=== PATIENT | female | born 1990 | race Caucasian/White ===

== ENCOUNTER 2019-09-26 14:47 | Inpatient (IN) | payer MEDICAID ==
[~2019-09-26] VITALS: Ht 165.1 cm; Wt 71.4 kg
[2019-09-26] MEDS ORDERED: POLYETHYLENE GLYCOL 17 GM PACKET PO PRN (17:00)
[2019-09-26] MEDS ORDERED: ONDANSETRON ODT 4 MG PO PRN (17:00)
[2019-09-26] MEDS ORDERED: DOCUSATE 100 MG CAPSULE PO PRN (17:00)
[2019-09-26] MEDS ORDERED: BISACODYL 10 MG SUPP PR PRN (17:00)
[2019-09-26] MEDS ORDERED: PLEASE ENTER HEIGHT AND WEIGHT MC SCH (17:30)
[2019-09-26 17:47] VITALS: BP 139/76
[2019-09-26] MEDS ORDERED: QUET (18:10)
[2019-09-26] MEDS ORDERED: [UNRECOGNIZED DRUG - OTHER] (18:10)
[2019-09-26] MEDS ORDERED: PRAZOSIN (18:10)
[2019-09-26] MEDS ORDERED: ABILIFY (18:10)
[2019-09-26 19:07] VITALS: BP 109/68
[2019-09-27 07:33] VITALS: BP 113/67
[2019-09-27 07:53] LABS: MICROSCOPIC AUTO
[2019-09-27 08:32] LABS: CHOL/HDL RATIO 3.8; LDL/HDL RATIO 2.1 (0.5-3.0)
[2019-09-27] MEDS: ACETAMINOPHEN 325 MG TABLET PO PRN (10:03)
[2019-09-27] MEDS: HYDROCORTISONE CRM 1%, 30GM TP PRN ×2 (15:44→20:23)
[2019-09-27] MEDS ORDERED: ARIP30TA4 PO (17:49)
[2019-09-27] MEDS ORDERED: QUET200T4 PO (17:49)
[2019-09-27] MEDS ORDERED: PROP20TA PO (17:50)
[2019-09-27] MEDS ORDERED: PRAZ2CAP2 PO (17:50)
[2019-09-27 19:57] VITALS: BP 134/70
[2019-09-27] MEDS: ARIPIPRAZOLE 15 MG TABLET PO SCH (20:22)
[2019-09-27] MEDS: QUETIAPINE 200 MG TABLET PO SCH (20:22)
[2019-09-27] MEDS: PRAZOSIN 2 MG CAPSULE PO SCH (20:22)
[2019-09-28 06:58] VITALS: BP 123/70
[2019-09-28] MEDS: PROPRANOLOL 20 MG TABLET PO SCH (08:32)
[2019-09-28] MEDS ORDERED: PROPRANOLOL 20 MG TABLET PO SCH (09:00)
[2019-09-28] MEDS: HYDROCORTISONE CRM 1%, 30GM TP PRN (14:39)
[2019-09-28 19:35] VITALS: BP 126/70
[2019-09-28] MEDS: ARIPIPRAZOLE 15 MG TABLET PO SCH (20:21)
[2019-09-28] MEDS: PRAZOSIN 2 MG CAPSULE PO SCH (20:21)
[2019-09-28] MEDS: QUETIAPINE 200 MG TABLET PO SCH (20:21)
[2019-09-29 07:55] VITALS: BP 105/63
[2019-09-29] MEDS: PROPRANOLOL 20 MG TABLET PO SCH (08:33)
[2019-09-29] MEDS: ACETAMINOPHEN 325 MG TABLET PO PRN ×3 (08:38→20:07)
[2019-09-29] MEDS: HYDROCORTISONE CRM 1%, 30GM TP PRN (14:04)
[2019-09-29] MEDS ORDERED: CYCLOBENZAPRINE 10 MG TABLET PO PRN (18:00)
[2019-09-29 19:48] VITALS: BP 113/73
[2019-09-29] MEDS: QUETIAPINE 200 MG TABLET PO SCH (20:07)
[2019-09-29] MEDS: PRAZOSIN 2 MG CAPSULE PO SCH (20:07)
[2019-09-29] MEDS: ARIPIPRAZOLE 15 MG TABLET PO SCH (20:07)
[2019-09-30 07:34] VITALS: BP 117/73
[2019-09-30] MEDS: PROPRANOLOL 20 MG TABLET PO SCH (08:29)
[2019-09-30] MEDS: ACETAMINOPHEN 325 MG TABLET PO PRN (09:16)
[2019-09-30] MEDS ORDERED: CYCL-259 PO (12:16)
[2019-09-30] MEDS ORDERED: QUET200T4 PO (12:16)
[2019-09-30] MEDS ORDERED: ARIP30TA4 PO (12:16)
[2019-09-30] MEDS ORDERED: PROP20TA PO (12:16)
[2019-09-30] MEDS ORDERED: PRAZ2CAP2 PO (12:16)
[2019-09-30] MEDS ORDERED: LORazepam 0.5MG TABLET PO ONE (15:00)
[2019-09-30 19:06] VITALS: BP 140/82
[2019-09-30] MEDS: PRAZOSIN 2 MG CAPSULE PO SCH (20:19)
[2019-09-30] MEDS: QUETIAPINE 200 MG TABLET PO SCH (20:19)
[2019-09-30] MEDS: ARIPIPRAZOLE 15 MG TABLET PO SCH (20:19)
[2019-10-01 07:20] VITALS: BP 121/80
[2019-10-01] MEDS: PROPRANOLOL 20 MG TABLET PO SCH (08:59)
== END 2019-10-01 16:30 | disposition home or self-care (01) | DRG 753 ==
LOC: 3E 16:50
PROVIDERS: ADMIT Psychiatry & Neurology Psychosomatic Medicine; ATTEND Psychiatry & Neurology Psychosomatic Medicine
DX: F31.30 Bipolar disorder, current episode depressed, mild or moderate severity, unspecified (principal); R42 Dizziness and giddiness; J45.909 Unspecified asthma, uncomplicated; I10 Essential (primary) hypertension; F43.10 Post-traumatic stress disorder, unspecified; F29 Unspecified psychosis not due to a substance or known physiological condition; F20.9 Schizophrenia, unspecified; Z91.5 Personal history of self-harm; Z79.899 Other long term (current) drug therapy; Q86.0 Fetal alcohol syndrome (dysmorphic); Z84.1 Family history of disorders of kidney and ureter
CPT/HCPCS: 36415; 71045; 80061; 81001; 87086